=== PATIENT | male | born 1950 | race Caucasian/White ===

== ENCOUNTER → 2018-05-25 | Outpatient (CLI) | payer OTHER ==
[~2018-05-25] MED LIST: IBUP600 PO; OXYACE5T PO
[2018-05-25 15:14] LABS: BASOPHILS ABSOLUTE AUTO 0.03 K/mm3 (0.00-0.23); BASOPHILS PERCENT AUTO 0 % (0-2); EOSINOPHILS ABSOLUTE AUTO 0.28 K/mm3 (0.00-0.68); EOSINOPHILS PERCENT AUTO 4 % (0-6); Hematocrit 51.2 % (37.0-53.0); Hemoglobin 17.4 g/dL (13.5-17.5); IMMATURE GRAN ABSOLUTE AUTO 0.01 K/mm3 (0.00-0.10); IMMATURE GRAN PERCENT AUTO 0 % (0-1); LYMPHOCYTES ABSOLUTE AUTO 1.47 K/mm3 (0.84-5.20); LYMPHOCYTES PERCENT AUTO 19 % (21-46); MONOCYTES ABSOLUTE AUTO 0.56 K/mm3 (0.16-1.47); MONOCYTES PERCENT AUTO 7 % (4-13); Mean Corpuscular Volume 106 fL (80-100); Mean Platelet Volume 9.9 fL (9.1-12.4); NEUTROPHILS PERCENT AUTO 71 % (41-73); Platelet Count 175 K/mm3 (150-400); RDW Standard Deviation 51.9 fL (35.1-46.3); Red Blood Cell Count 4.83 M/mm3 (4.30-5.90); White Blood Cell Count 7.95 K/mm3 (4.00-11.30)
[2018-05-25 15:36] LABS: Albumin, Blood 4.3 g/dL (3.4-5.0); Albumin/Globulin Ratio 1.4 (0.8-1.8); Bun/Creatinine Ratio 14.7 (12.0-20.0); Calcium, Blood 9.6 mg/dL (8.5-10.1); Creatinine, Blood 1.5 mg/dL (0.60-1.20); Potassium, Blood 4.2 mmol/L (3.5-5.5); Total Protein, Blood 7.3 g/dL (6.4-8.2)
== END | disposition home or self-care (01) ==
LOC: LAB 15:02 → LAB SHORT 15:02
PROVIDERS: Physician Assistant
DX: R10.9 Unspecified abdominal pain (principal)
CPT/HCPCS: 80053; 83690; 85025

== ENCOUNTER → 2018-12-07 | Outpatient (CLI) | payer OTHER | END | disposition home or self-care (01) | LOC: LAB SHORT 14:27 → PLD 14:27 | DX: D48.5 Neoplasm of uncertain behavior of skin (principal) | CPT/HCPCS: 88305 ==

== ENCOUNTER → 2022-02-04 | Outpatient (CLI) | payer OTHER | LOC: LAB 11:29 → LAB SHORT 11:29 | DX: L72.3 Sebaceous cyst (principal) | CPT/HCPCS: 87070; 87075; 87205 ==

== ENCOUNTER 2023-12-18 10:59 | Emergency (ER) | payer OTHER ==
[~2023-12-18] VITALS: Ht 195.6 cm; Wt 83.9 kg
[2023-12-18] MEDS ORDERED: Morphine Sulfate 4 MG/1 ML Injection IV ONE (12:05)
[2023-12-18] MEDS ORDERED: Ondansetron HCl 2 MG / ML 2ML Vial IV ONE (12:05)
[2023-12-18 12:26] LABS: BASOPHILS ABSOLUTE AUTO 0.03 K/mm3 (0.00-0.23); BASOPHILS PERCENT AUTO 1 % (0-2); EOSINOPHILS ABSOLUTE AUTO 0.06 K/mm3 (0.00-0.68); EOSINOPHILS PERCENT AUTO 1 % (0-6); Hematocrit 44.8 % (37.0-53.0); Hemoglobin 15.6 g/dL (13.5-17.5); IMMATURE GRAN ABSOLUTE AUTO 0.02 K/mm3 (0.00-0.10); IMMATURE GRAN PERCENT AUTO 0 % (0-1); LYMPHOCYTES ABSOLUTE AUTO 0.58 K/mm3 (0.84-5.20); LYMPHOCYTES PERCENT AUTO 10 % (21-46); MONOCYTES PERCENT AUTO 8 % (4-13); Mean Corpuscular HGB 36.4 pg (26.0-34.0); Mean Corpuscular HGB Conc 34.8 g/dL (31.5-36.5); Mean Corpuscular Volume 104 fL (80-100); Mean Platelet Volume 9.4 fL (9.1-12.4); NEUTROPHILS PERCENT AUTO 81 % (41-73); Platelet Count 136 K/mm3 (150-400); RDW Coefficient Variation 14.3 % (11.7-14.2); RDW Standard Deviation 55.8 fL (35.1-46.3); Red Blood Cell Count 4.29 M/mm3 (4.30-5.90); White Blood Cell Count 6.09 K/mm3 (4.00-11.30)
[2023-12-18 12:51] LABS: Albumin/Globulin Ratio 1.3 (0.8-1.8); Bilirubin, Total 0.6 mg/dL (0.1-1.0); Calcium, Blood 9.4 mg/dL (8.5-10.1); Creatinine, Blood 1.47 mg/dL (0.60-1.20); Potassium, Blood 5.2 mmol/L (3.5-5.5)
[2023-12-18] MEDS ORDERED: Esmolol HCL 2500mg/250ml Prema 250 ML IV SCH (13:35)
[2023-12-18] MEDS ORDERED: Esmolol HCL 10 MG/ML 10ML VIAL IV ONE (13:40)
[2023-12-18] MEDS ORDERED: HYDROmorphone HCl/Pf 1MG SYR IV ONE (13:40)
[2023-12-18] MEDS ORDERED: NiCARdipine HCL 50 MG in NS 250 ML IV SCH (14:20)
[2023-12-18] MEDS ORDERED: Labetalol HCL 500 MG in Dextrose 5% 150 ML IV SCH (14:55)
[2023-12-18 15:15] VITALS: BP 148/88
== END 2023-12-18 15:55 | disposition short-term general hospital (02) ==
LOC: ER 10:59
PROVIDERS: Student in an Organized Health Care Education/Training Program
DX: I71.02 Dissection of abdominal aorta (principal); F17.210 Nicotine dependence, cigarettes, uncomplicated
CPT/HCPCS: 71275; 74174; 80053; 83690; 84484; 85025; 96365-59; 96366-59; 96368; 96375-59; 99291-25; J1171; J2270; J2405; J7050; J7060; Q9967

== ENCOUNTER 2024-12-20 07:33 | Day surgery (SDC) | payer OTHER, MEDICARE ==
[~2024-12-20] VITALS: Ht 193 cm; Wt 76.4 kg
[~2024-12-20 07:33] MED LIST changes: +Lidocaine 2% Jelly Uro-Jet ONE
[2024-12-20] MEDS ORDERED: CeFAZolin Sodium 2,000 MG VIAL ONE (07:51)
[2024-12-20] MEDS ORDERED: Aspir 8181 MG (07:57)
[2024-12-20] MEDS ORDERED: CARVEDILOL25 M9 (07:57)
[2024-12-20] MEDS ORDERED: LOSARTAN POTASS25 M2 (07:57)
[2024-12-20] MEDS ORDERED: AMLODIPINE BESY10 MG (07:57)
[2024-12-20] MEDS ORDERED: AMOX-CLAV 500-1 EAC5 (08:02)
[2024-12-20] MEDS ORDERED: FentaNYL Citrate 50 MCG/ML 2 ML Injection ONE (08:22)
[2024-12-20] MEDS ORDERED: Dexamethasone Sod Phos 10 MG/ML 1ML VIAL ONE (08:50)
[2024-12-20] MEDS ORDERED: Ondansetron HCl 2 MG / ML 2ML Vial ONE (09:13)
--- NOTE | 2024-12-20 09:29 | NUR ---
12/20/24 0929 Tamika Hermosillo ISOVUE-300 100ML MIXED 1:1 WITH NACL ON FIELD
--- NOTE | 2024-12-20 09:48 | NUR ---
12/20/24 0948 CLEO OME PT AWAKE WHEN COMES OUT OF OR, BUT SOMEWHAT DISORIENTED
[2024-12-20 10:01] VITALS: BP 106/65
--- NOTE | 2024-12-20 10:01 | NUR ---
12/20/24 1001 CLEO OME STATES BACK DISCOMFORT 03/21. NOT REALLY A PAIN. JUST WANTS TO GET OFF HIS BACK. NOT BUILT TO SIT
== END 2024-12-20 10:52 | disposition home or self-care (01) ==
LOC: ORSCSDS 07:33
PROVIDERS: Urology
PROC: 0TJB8ZZ Inspection of Bladder, Via Natural or Artificial Opening Endoscopic (ICD-10-PCS; principal; 2024-12-20 09:00)
DX: N13.30 Unspecified hydronephrosis (principal); I12.9 Hypertensive chronic kidney disease with stage 1 through stage 4 chronic kidney disease, or unspecified chronic kidney disease; N18.30 Chronic kidney disease, stage 3 unspecified; J43.8 Other emphysema; Z85.51 Personal history of malignant neoplasm of bladder; Z79.82 Long term (current) use of aspirin; Z79.899 Other long term (current) drug therapy; Z87.891 Personal history of nicotine dependence
CPT/HCPCS: C1758; C1769; C2617; J0690; J1100; J2405; J2704; J3010; J7120